=== PATIENT | male | born 1960 | race Caucasian/White ===

== ENCOUNTER 2020-04-23 12:22 | Emergency (ER) | payer MEDICARE, SELFPAY ==
[2020-04-23 12:30] VITALS: BP 144/90; PULSE 94; RESP 14; TEMP 36.7; O2SAT 98
[2020-04-23] MEDS: EPINEPHrine HCL INJ 1 MG/ML AMPUL SUB-Q (12:42)
[2020-04-23] MEDS: predniSONE 20 MG TABLET 80 MG PO (12:42)
--- NOTE | 2020-04-23 12:42 | ED.ALLEREA ---
HPI - Allergic Reaction General Chief complaint: Allergic Reaction Stated complaint: 59YO male w/ wasp sting to left hand. Here for evaluation c/o pain and itching. Denies SOB. Review of Systems Review of Systems: All systems reviewed & are unremarkable except as noted in HPI and below Constitutional: Constitutional: Reports as per HPI and Reports no additional constitutional complaints Eyes: Eyes: Reports no additional eye complaints ENT: Reports system reviewed and no additional complaints, except as documented Cardiovascular: Cardiovascular: Reports no additional cardiovascular complaints Respiratory: Respiratory: Reports no additional respiratory complaints, Denies chest congestion, Denies dyspnea and Denies wheezing Gastrointestinal: Gastrointestinal: Reports no additional gastrointestinal complaints Genitourinary: Genitourinary: Reports no additional male genitourinary complaints Musculoskeletal: Musculoskeletal: Reports no additional musculoskeletal complaints Integumentary/Breasts: Skin/Breast: Reports system reviewed and no additional complaints, except as docu, Reports pruritus and Reports rash (mild erythema to left hand) Neurologic: Reports system reviewed and no additional complaints, except as documented Psychiatric: Psychiatric: Reports no additional psychiatric complaints Endocrine: Endocrine: Reports no additional endocrine complaints Hematologic/Lymphatic: Hematologic/Lymphatic: Reports no additional hematologic/lymphatic complaints Allergic/Immunologic: Allergic/Immunologic: Reports as per HPI, Denies lip swelling, Denies throat swelling, Denies tongue swelling and Denies wheezing PMFSH Past Medical History Medical History Diabetic neuropathy DMII (diabetes mellitus, type 2) Lumbar spondylosis Surgical History Surgical History History of cholecystectomy Exam Const: General: healthy appearing, no acute distress and alert Orientation/consciousness: patient oriented x3 HENMT: Head: normal to inspection Eyes: Pupils: Equal, round and reactive pupils present Neck: Neck: normal visual inspection Chest: Chest palpation & inspection: normal inspection of the chest Resp: Effort & Inspection: normal respiratory effort Cardio: Rate: regular rate Rhythm: regular rhythm GI: GI Palp: Yes Soft to palpation and No Tenderness to palpation present (GI) : Testes: Testes normal Back/Spine/Pelvis: Back: no CVA tenderness Skin: General skin exam: normal color Other: Mild erythema on left hand at area of wasp sting Neuro: General: patient oriented x3, moves all extremities, no focal motor deficits and CN's II-XI intact bilaterally Extrem: General: normal to inspection Psych: Affect: normal affect Course Course Emergency Course: Epi 1mg S/C x 1, [id number] PO x 1 in ED. Patient observed for 1 hour. No changes. Will d./c home MDM - Allergic Reaction Differential Diagnosis Differential diagnosis: Likely allergic reaction and urticaria Medical Records Attestation: I reviewed the patient's medical records. Critical Care Time Critical Care Time Critical Care Time: No Discharge Plan Discharge Clinical Impression: Allergic reaction, Urticaria Patient Disposition: Home, Self-Care Condition: Improved Instructions: Antibiotic Form, Urticaria (ED), Insect Bite or Sting (ED) Additional Instructions: F/U with PMD in 3-5 days Prescriptions: New prednisone 20 mg tablet 60 mg PO DAILY Qty: 12 RF: 0 hydroxyzine HCl 25 mg tablet 25 mg PO TID PRN (Reason: itching) Qty: 14 RF: 0 Follow-up/Referrals: UNKNOWN,DOCTOR [Primary Care Provider] - Time of Disposition: 13:07
[2020-04-23 13:40] VITALS: BP 147/82; PULSE 94; RESP 20; O2SAT 98
== END 2020-04-23 13:40 | disposition home or self-care (01) ==
PROVIDERS: Emergency Provider Family Medicine
DX: L50.9 Urticaria, unspecified (principal); T63.481A Toxic effect of venom of other arthropod, accidental (unintentional), initial encounter
CPT/HCPCS: 96372; 99283; J0171; J7512

== ENCOUNTER 2023-07-05 17:08 | Emergency (ER) | payer MEDICARE, SELFPAY ==
--- NOTE | ~2023-07-05 | XR_ITS ---
EXAMINATION: XR hip RT 2V w AP pelvis INDICATION: Right hip pain TECHNIQUE: AP view the pelvis and two views of the right hip are obtained. COMPARISON: None available FINDINGS: Bone alignment is normal. There is no fracture. 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 Phleb oliths are noted in the pelvis. There are changes of anterior posterior fusion in the lower lumbar sp ine. IMPRESSION: 1. No acute osseous abnormality. Reviewed, dictated and finalized at location F.
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
--- NOTE | ~2023-07-05 | CT_ITS ---
EXAMINATION: CT brain wo con INDICATION: Headache COMPARISON: None TECHNIQUE: Standard unenhanced head CT. The dose-length product (DLP) was 681.00 mGy-cm. The mA was a djusted according to patient size. Iterative reconstruction technique was employed. FINDINGS: No acute intraparenchymal hemorrhage. No evidence of mass lesion. No evidence of acute infa rction. 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 T here is mild periventricular and subcortical hypodensity probably related to small vessel ischemic di sease. There is mild prominence of the sulci and ventricles related to cerebral atrophy. Intracranial calcified cerebral atherosclerosis is noted. No extra-axial collections. No mass effect or midline s hift. The orbits and soft tissues are unremarkable. There is mild mucosal thickening of the paranasal sinuses. IMPRESSION: 1. No acute intracranial abnormality. 2. Age related findings. Reviewed, dictated and finalized at location F.
--- NOTE | ~2023-07-05 | CT_ITS ---
EXAMINATION: CT thoracic lumbar wo con DATE: 07/05/2023 18:16 INDICATION: Back pain TECHNIQUE: Computed tomography (CT) of the thoracic and lumbar spine was performed without intravenou s contrast. The dose-length product (DLP) was 2099.44 mGy-cm. Iterative reconstruction was used. COMPARISON: None FINDINGS: Thoracic Spine: Bone alignment is normal. There is no fracture. Vertebral body heights are maintained . There is mild loss of intervertebral disc space height at multiple levels in the thoracic spine. Lumbar Spine: Bone alignment is normal. There is no fracture. There are changes of anterior posterior fusion at L4-5. The vertebral body heights are maintained. There is mild facet joint osteoarthritis. IMPRESSION: 1. Mild thoracic and lumbar spondylosis without acute findings. Reviewed, dictated and finalized at location F.
--- NOTE | ~2023-07-05 | XR_ITS ---
EXAMINATION: XR knee RT min 4V DATE: 07/05/2023 18:16 INDICATION: Right knee pain TECHNIQUE: Four views of the right knee were obtained. COMPARISON: None. FINDINGS: Alignment is normal. No fracture or osteochondral lesion. There is mild tricompartmental os teoarthritis characterized by tiny marginal osteophytes. No joint effusion/synovitis. Soft tissues a re unremarkable. IMPRESSION: 1. No acute osseous abnormality. Reviewed, dictated and finalized at location F.
--- NOTE | ~2023-07-05 | XR_ITS ---
EXAMINATION: XR shoulder LT min 2V INDICATION: Left shoulder pain TECHNIQUE: Four views of the left shoulder are submitted. COMPARISON: None FINDINGS: Normal alignment. No fracture. There is moderate osteoarthritis of the acromioclavicular an d glenohumeral joints. Soft tissues are unremarkable. IMPRESSION: 1. No acute osseous abnormality. Reviewed, dictated and finalized at location F.
[2023-07-05 17:10] VITALS: BP 149/97; RESP 20; TEMP 36.9; O2SAT 98
[2023-07-05 17:13] VITALS: BP 100/41; PULSE 112; RESP 18; TEMP 36.8; O2SAT 98
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
[2023-07-05] MEDS: KETOROLAC 30 MG/ML VIAL (*BKC) IM (18:36)
--- NOTE | 2023-07-05 18:40 | PC.NURSE ---
pt complaint of pain all over , dr aware. awaiting ct results. medication given as ordered. pt resting , head of bed elevated for level of comfort. call barker in reach
[2023-07-05 19:15] VITALS: BP 150/98; PULSE 93; RESP 18; O2SAT 98
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
--- NOTE | 2023-07-05 19:45 | PC.NURSE ---
1945-PT RETURNS FROM IMAGING VIA HOSPITAL WHEELCHAIR, ESCORTED BY [facility]. PT NOTED TO BE AMBULATORY TO HOSPITAL STRETCHER, WITH STEADY GAIT, WITHOUT INCIDENT. CALL LIGHT IS WITHIN REACH.
[2023-07-05 19:47] VITALS: BP 137/90; PULSE 95; RESP 16; O2SAT 98
[2023-07-05 20:19] VITALS: BP 137/92; PULSE 95; RESP 16; O2SAT 98
== END 2023-07-05 20:27 | disposition home or self-care (01) ==
PROVIDERS: Emergency Provider Emergency Medicine
DX: T14.8XXA Other injury of unspecified body region, initial encounter (principal); M54.2 Cervicalgia; M25.512 Pain in left shoulder; M54.50 Low back pain, unspecified; E11.9 Type 2 diabetes mellitus without complications; V03.00XA Pedestrian on foot injured in collision with car, pick-up truck or van in nontraffic accident, initial encounter; Y92.481 Parking lot as the place of occurrence of the external cause
CPT/HCPCS: 70450; 72125; 72128; 72131; 73030; 73502; 73564; 96372; 99284; J1885

== ENCOUNTER 2023-07-25 09:44 | Outpatient (CLI) | payer MEDICARE, SELFPAY ==
--- NOTE | ~2023-07-25 | MR_ITS ---
EXAMINATION: MR shoulder LT wo con DATE: 07/25/2023 11:12 INDICATION: M25.512 - Pain in left shoulder . TECHNIQUE: Magnetic resonance imaging (MRI) of the left shoulder was performed without intravenous co ntrast. Sequences included axial PD-weighted FS FSE, coronal oblique PD-weighted FS FSE and T2-weight ed FS FSE, and sagittal oblique T2-weighted FS FSE and T1-weighted FSE. COMPARISON: X-ray left shoulder 07/05/2023. FINDINGS: Coracoacromial arch: No significant anterolateral downsloping of the type I acromion. No subcoracoid narrowing. Minimal ac romial tip enthesopathy. Rotator cuff: Mild signal abnormality in the superior cuff, without focal tear. The teres minor and subscapularis a re intact. Biceps tendon and glenoid labrum: Superior labral tear with small adjacent cyst. Mild thickening and abnormal signal in the proximal lo ng head of biceps tendon. Fluid: No significant glenohumeral joint fluid. Trace subacromial subdeltoid fluid. Bones/cartilage: Moderate AC joint hypertrophy. Mild glenohumeral narrowing. IMPRESSION: Mild tendinopathy of the superior rotator cuff. Superior labral tear. Tendinopathy of the proximal long head of biceps tendon. Moderate AC joint and mild glenohumeral joint osteoarthritis. Mild subacromial subdeltoid bursitis. Reviewed, dictated and finalized at location K.
--- NOTE | ~2023-07-25 | MR_ITS ---
MRI of the cervical spine Clinical History: Pain Technique: Axial T2-weighted and gradient images, and sagittal T1-weighted, T2-weighted, and STIR anna ges were acquired. Findings: There is anterior fusion from C5 to C6 with associated susceptibility artifact. There is mi nimal reversal normal cervical lordosis. No acute fracture or sublocation seen. No suspicious bone ma rrow signal abnormality seen. At C2-C3, there is no significant disc bulge or herniation. There is probable minimal bilateral neura l foraminal narrowing with mild facet arthropathy. No central canal stenosis or cord compression. At C3-C4, there is mild disc osteophyte complex. There is mild canal stenosis without jan cord comp ression. There is probable bilateral neural foraminal narrowing with facet arthropathy bilaterally. At C4-C5, there is disc osteophyte complex with canal stenosis and mild cord compression. There is bi lateral neural foraminal narrowing with mild facet arthropathy. At C5-C6, there is no definite disc bulge or herniation. No jan canal stenosis or cord compression. Probable mild left neural foraminal narrowing. At C6-C7, there is mild disc osteophyte convex, with probable mild canal stenosis but no jan cord c ompression. There is bilateral neural foraminal narrowing. No abnormal signal seen in the spinal cord. Paravertebral soft tissues are unremarkable. Impression: Anterior fusion from C5 to C6. Moderate degenerative spondylosis throughout the cervical spine, as above. Reviewed, dictated and finalized at [facility]. Impression: Anterior fusion from C5 to C6. Moderate degenerative spondylosis throughout the cervical spine, as above.
== END 2023-07-25 09:45 | disposition home or self-care (01) ==
PROVIDERS: PCP Nurse Practitioner Family; Visit Provider Nurse Practitioner Family
DX: M25.512 Pain in left shoulder (principal); M54.2 Cervicalgia; M75.22 Bicipital tendinitis, left shoulder; M19.012 Primary osteoarthritis, left shoulder; M75.52 Bursitis of left shoulder; Z98.1 Arthrodesis status; M43.02 Spondylolysis, cervical region
CPT/HCPCS: 72141; 73221